=== PATIENT | male | born 1985 | race Native Hawaiian/Other Pacific Islander ===

== ENCOUNTER → 2017-04-19 | Outpatient (REF) | LOC: WSOH 15:30 | DX: Z02.89 Encounter for other administrative examinations (principal) ==

== ENCOUNTER 2017-11-13 06:14 | Emergency (ER) | payer BC ==
[~2017-11-13] VITALS: Ht 175.3 cm; Wt 81.8 kg
[2017-11-13 06:20] VITALS: TEMP 97.8
[2017-11-13] MEDS ORDERED: HUMIRA40 MG/0.1 SQ (06:24)
[2017-11-13] MEDS ORDERED: ALLEGRA 180MG180 MG PO (06:25)
[2017-11-13 07:01] LABS: BASO % 0.4 % (0.0-2.0); EOS # 0.4 (0.0-0.7); EOS % 6.2 % (0-4.0); GRAN # 2.4 (1.4-6.5); GRAN % 33.9 % (42.2-75.2); HEMATOCRIT 46.9 % (42.0-52.0); HEMOGLOBIN 15.9 g/dl (13.5-18.0); LYMPH # 3.6 (1.2-3.4); LYMPH % 51.3 % (20.0-51.0); MEAN CELL VOLUME 92 fl (80.0-100.0); MEAN CORPUSCULAR HEMOGLOBIN 31 pg (27.0-31.0); MEAN CORPUSCULAR HGB CONC 34 g/dl (33.0-37.0); MEAN PLATELET VOLUME 9.4 fl (7.4-10.4); MONO # 0.6 (0.1-0.6); MONO % 7.9 % (1.7-9.3); PLATELET COUNT 268 K/mm3 (130-400); RED BLOOD COUNT 5.11 M/mm3 (4.20-5.60); REDCELL DISTRIBUTION WIDTH-CV 11.9 % (11.5-14.5)
[2017-11-13 07:13] LABS: ALANINE AMINOTRANSFERASE 57 U/L (21-72); ALBUMIN 4.6 gm/dL (3.5-5.0); ALKALINE PHOSPHATASE 48 U/L (50-136); ANION GAP 10 mmol/L (7-16); AST,SGOT 65 U/L (15-37); BILIRUBIN,TOTAL 0.5 mg/dL (0.0-1.0); BLOOD UREA NITROGEN 16 mg/dL (9-20); CALCIUM 9.3 mg/dL (8.4-10.2); CARBON DIOXIDE 28 mmol/L (22-30); CHLORIDE 103 mmol/L (98-107); CREATININE, serum 0.86 mg/dL (0.66-1.25); GLUCOSE 112 mg/dL (74-106); LIPASE 128 U/L (23-300); POTASSIUM 3.9 mmol/L (3.4-5.0); SODIUM 141 mmol/L (137-145); TOTAL PROTEIN 7.8 gm/dL (6.4-8.2)
[2017-11-13 07:17] LABS: C-REACTIVE PROTEIN < 0.5 mg/dL (0.0-0.9)
[2017-11-13] MEDS ORDERED: ZOFRAN ODT4 MG PO (09:05)
[2017-11-13] MEDS ORDERED: NORCO 325 MG-51 TAB PO (09:05)
[2017-11-13 09:24] VITALS: BP 121/79; PULSE 80
== END 2017-11-13 09:30 | disposition home or self-care (01) ==
LOC: COL.ER 06:14
PROVIDERS: Emergency Medicine
DX: R10.13 Epigastric pain (principal); R10.11 Right upper quadrant pain
CPT/HCPCS: J1170; J2405; J7030